=== PATIENT | male | born 1965 | race Caucasian/White ===

== ENCOUNTER 2019-01-29 20:35 | Emergency (ER) | payer OTHER ==
[~2019-01-29] VITALS: Ht 180.3 cm; Wt 82.6 kg
[2019-01-29] MEDS ORDERED: PROAIR HFA8.5 GM INH (20:46)
[2019-01-29] MEDS ORDERED: KEFLEX500 M1 PO (21:02)
[2019-01-29] MEDS ORDERED: BACTRIM DS TAB1 EAC1 PO (21:02)
[2019-01-29] MEDS ORDERED: TYLENOL WITH CO1 TA1 PO (21:03)
[2019-01-29 21:48] VITALS: BP 156/105
== END 2019-01-29 21:49 | disposition home or self-care (01) ==
LOC: M.ERS 20:35
DX: S90.411A Abrasion, right great toe, initial encounter (principal); L03.115 Cellulitis of right lower limb; J45.909 Unspecified asthma, uncomplicated; F17.210 Nicotine dependence, cigarettes, uncomplicated; X58.XXXA Exposure to other specified factors, initial encounter; Y93.89 Activity, other specified; Y92.89 Other specified places as the place of occurrence of the external cause; Y99.8 Other external cause status